=== PATIENT | female | born 1990 | race Hispanic/Latino ===

== ENCOUNTER 2018-01-29 01:23 | Emergency (ER) | payer SELFPAY ==
[~2018-01-29] VITALS: Ht 160 cm; Wt 44.9 kg
[~2018-01-29 01:23] MED LIST: MAGIC MOUTHWASH PO; PRILOSEC OTC20 M1 PO
[2018-01-29 01:25] VITALS: BP 106/75
--- NOTE | 2018-01-29 02:05 | ED SKIN/ALLERGY COMPLAINT ---
History of Present Illness General Chief Complaint: Skin Rash/ Abcess Stated Complaint: PT C/O SKIN RASH X'S 2 DAYS Source: patient, old records Exam Limitations: no limitations Vital Signs & Intake/Output Vital Signs & Intake/Output Vital Signs Date Time Temp Pulse Resp B/P B/P Pulse O2 O2 Flow FiO2 Mean Ox Delivery Rate 01/29 0210 100 Room Air 01/29 0125 97.2 81 16 106/75 97 Allergies Coded Allergies: No Known Allergies (09/07/17) Reconcile Medications Famotidine (Pepcid) 20 MG TABLET 1 TAB PO BID poison radha Hydroxyzine Hydrochloride (Atarax) 25 MG TAB 1-2 TAB PO Q6P PRN itchy rash [MAGIC MOUTHWASH] 10 ML PO TID PRN GERD MAGIC MOUTH WASH 1:1:1 EQUAL PARTS SWISH AND SWALLOW Omeprazole Magnesium (Prilosec Otc) 20 MG TABLET. 1 TAB PO DAILY GERD Prednisone 20 MG TABLET 1 TAB PO BID poison radha Triage Note: TRIAGE: PATIENT TO ER FROM HOME REPORTING RASH BEGAN ON R HAND 2 DAYS AGO, NOW TO MULTIPLE SITES, NOTED TO ENTIRE R ARM IN TRIAGE. +ITCH. REPORTS 2 WEEKS AGO HAD POISON RADHA "USED LOTION AND WENT AWAY. BUT KIND OF LOOKED LIKE THAT." Triage Nurses Notes Reviewed? yes Onset: 2 days Duration: day(s):, constant, continues in ED Timing: recent history Severity: moderate, severe Location: extremities Possible Factors: exposure to allergen Modifying Factors: Improves With: antihistamine, scratching. Associated Symptoms: change in skin texture, rash LMP (ages 10-50): unknown : No Patient currently breastfeeds: No HPI: 2 weeks prior to admission patient reports being exposed to poison radha developing rash on arms and ankles. It is slowly improved. 2 days prior to admission returning from visit to [place] she complains of sunburn to shoulders and recurrent itchy rash to bilateral forearms and ankles. She denies fever chills nausea vomiting diarrhea abdominal pain chest pain shortness breath headache dysuria bleeding. Past History Travel History Traveled to [place] past 21 day No Medical History Any Pertinent Medical History? none Neurological: NONE EENT: NONE Cardiovascular: NONE Respiratory: NONE Gastrointestinal: NONE Hepatic: NONE Renal: NONE Musculoskeletal: NONE Psychiatric: NONE Endocrine: NONE Blood Disorders: NONE Cancer(s): NONE PROVIDER SCRIBE/Reproductive: NONE Surgical History Surgical History: non-contributory Psychosocial History What is your primary language Brazilian Tobacco Use: Never used Family History Hx Contributory? No Review of Systems Review of Systems Constitutional: Reports: no symptoms. EENTM: Reports: no symptoms. Respiratory: Reports: no symptoms. Cardiovascular: Reports: no symptoms. GI: Reports: no symptoms. Genitourinary: Reports: no symptoms. Musculoskeletal: Reports: no symptoms. Skin: Reports: see HPI, rash. Neurological/Psychological: Reports: no symptoms. Hematologic/Endocrine: Reports: no symptoms. Immunologic/Allergic: Reports: no symptoms. All Other Systems: Reviewed and Negative Physical Exam Physical Exam General Appearance: well developed/nourished, mild distress Head: atraumatic Eyes: Bilateral: PERRL, EOMI. Ears, Nose, Throat: normal pharynx, normal ENT inspection, hearing grossly normal Neck: normal inspection, supple Respiratory: normal breath sounds Cardiovascular: regular rate/rhythm Peripheral Pulses: 4+ carotid (R), 4+ carotid (L) Gastrointestinal: soft, non-tender Back: normal inspection Extremities: normal inspection, normal range of motion, no edema Neurologic/Psych: awake, alert, oriented x 3, normal mood/affect Reflexes: 2+: bicep (R), bicep (L). Skin: intact, normal color, warm/dry, rash Skin Problem Location: upper extremities, lower extremities Skin Problem Character: patchy, rash, vesicular Lymphatic: no anterior cervical jorge Progress Differential Diagnosis: abscess/cellulitis, contact dermatitis, urticaria Plan of Care: Current Medications Sig/Huber Start time Last Medication Dose Stop Time Status Admin Famotidine 20 MG ONCE ONE 01/29 215 AC (Pepcid) 01/30 216 Hydroxyzine HCl 25 MG ONCE ONE 01/29 215 AC (Atarax) 01/30 216 Prednisone 60 MG ONCE ONE 01/29 215 AC 01/30 216 Departure Departure Time of Disposition: 204 Disposition: HOME OR SELF CARE Condition: Stable Clinical Impression Primary Impression: Poison radha dermatitis Referrals: Patient Has No Primary Care Dr (PCP/Family) Departure Forms: Customer Survey General Discharge Information Prescriptions: Current Visit Scripts Prednisone 1 TAB PO BID #10 TAB Famotidine (Pepcid) 1 TAB PO BID #10 TAB Hydroxyzine Hydrochloride (Atarax) 1-2 TAB PO Q6P PRN itchy rash #60 TAB
[2018-01-29] MEDS ORDERED: HYDROXYZINE HCL25 M2 PO (02:10)
[2018-01-29] MEDS ORDERED: PREDNISONE20 M1 PO (02:10)
[2018-01-29] MEDS ORDERED: PEPCID20 M1 PO (02:10)
== END 2018-01-29 02:25 ==
LOC: ERH 01:23
DX: L23.7 Allergic contact dermatitis due to plants, except food (principal)